=== PATIENT | male | born 1940 | race Caucasian/White ===

== ENCOUNTER 2021-03-27 17:34 | Inpatient (IN) ==
[2021-03-27 18:11] LABS: Basophils # 0.1 10*3/uL (0.0-0.2); Basophils % 0.8 % (0.0-0.8); Eosinophils # 0.2 10*3/uL (0.0-0.87); Hematocrit 34.8 VOL% (42.0-52.0); Hemoglobin 11.1 GM/DL (14.0-18.0); Immature Granulocytes % 0.4 %; Immature Granulocytes Absolute 0.03 #; Lymphocytes # 1.7 10*3/uL (1.4-4.0); Lymphocytes % 23.6 % (21.2-54.2); Mean Corpuscular HGB Conc 31.9 GM/DL (32-36); Mean Corpuscular Volume 101.2 FL (87-102); Mean Platelet Volume 11.2 FL (9.6-12.0); Monocytes % 14.3 % (1.7-12.7); Neutrophils % 57.9 % (38.7-73.9); Platelet Count 168 T/CUMM (130-400); Red Blood Count 3.44 MC/CUMM (3.8-5.5); Red Cell Distribution Width 13.3 % (9.3-17.3); White Blood Count 7.1 T/CUMM (4-12)
[2021-03-27 18:21] LABS: INR 1.1; PT Patient Result 12.6 SECS (10.5-12.0); Partial Thromboplastin Time 32.3 SECS (23.8-32.1)
[2021-03-27 18:51] LABS: Albumin 3.1 G/DL (3.4-5.0); Bilirubin,Total 0.4 MG/DL (0.20-1.00); Calcium 9.3 MG/DL (8.5-10.1); Osmolality,Calculated 276.8 MOS/KG (273-304); Potassium 4.4 MMOL/L (3.5-5.1); Total Protein 6.9 G/DL (6.4-8.2)
[2021-03-27] MEDS ORDERED: METHOCARBAMOL 500 MG TABLET PO PRN (19:58)
[2021-03-27] MEDS ORDERED: LIDOCAINE 5% PATCH TRANSDERM PRN (19:58)
[2021-03-27] MEDS ORDERED: MAGNESIUM SULF RIDER 4 GM/100 ML PREMIX IV PRN (19:59)
[2021-03-27] MEDS ORDERED: BISACODYL 5 MG TABLET PO PRN (19:59)
[2021-03-27] MEDS ORDERED: ALUMINUM/MAGNES/SIMETH MAX STR 30 ML UDCUP PO PRN (19:59)
[2021-03-27] MEDS ORDERED: ACETAMINOPHEN 325 MG TABLET PO PRN (19:59)
[2021-03-27] MEDS ORDERED: DOCUSATE SODIUM 100 MG CAPSULE PO PRN (19:59)
[2021-03-27] MEDS ORDERED: SIMETHICONE CHEW 125 MG TABLET PO PRN (19:59)
[2021-03-27] MEDS ORDERED: MAGNESIUM SULF RIDER 2 GM/50 ML PREMIX IV PRN (19:59)
[2021-03-27] MEDS: ENOXAPARIN 100 MG/ML SYRINGE SUBCUT SCH (20:47)
[2021-03-27] MEDS: SIMVASTATIN 20 MG TABLET PO SCH (20:47)
[2021-03-27] MEDS: METOPROLOL SUCCINATE XL 25 MG TABLET PO SCH (20:47)
[2021-03-28] MEDS ORDERED: AMIODARONE INJ 150 MG in DEXTROSE 5% 100 ML IV ONE (01:24)
[2021-03-28] MEDS ORDERED: AMIODARONE 450 MG/9 ML VIAL IV ONE (01:25)
[2021-03-28] MEDS ORDERED: AMIODARONE 150 MG/3 ML VIAL ONE (01:25)
[2021-03-28] MEDS ORDERED: AMIODARONE INJ 450 MG in DEXTROSE 5% 241 ML IV SCH (01:40)
[2021-03-28 02:04] LABS: Basophils # 0.1 10*3/uL (0.0-0.2); Basophils % 0.6 % (0.0-0.8); Eosinophils # 0.2 10*3/uL (0.0-0.87); Eosinophils % 1.7 % (0.00-10.9); Hematocrit 33.8 VOL% (42.0-52.0); Hemoglobin 10.7 GM/DL (14.0-18.0); Immature Granulocytes % 0.4 %; Immature Granulocytes Absolute 0.04 #; Lymphocytes # 1.4 10*3/uL (1.4-4.0); Lymphocytes % 14.9 % (21.2-54.2); Mean Corpuscular HGB Conc 31.7 GM/DL (32-36); Mean Corpuscular Volume 100.3 FL (87-102); Mean Platelet Volume 10.8 FL (9.6-12.0); Monocytes % 10.4 % (1.7-12.7); Platelet Count 151 T/CUMM (130-400); Red Blood Count 3.37 MC/CUMM (3.8-5.5); Red Cell Distribution Width 13.2 % (9.3-17.3); White Blood Count 9.6 T/CUMM (4-12)
[2021-03-28 02:35] LABS: Calcium 8.8 MG/DL (8.5-10.1); Osmolality,Calculated 279.5 MOS/KG (273-304); Potassium 4.4 MMOL/L (3.5-5.1)
[2021-03-28] MEDS: AMIODARONE INJ 450 MG in DEXTROSE 5% 241 ML IV SCH ×2 (08:07→23:26)
[2021-03-28] MEDS: ENOXAPARIN 100 MG/ML SYRINGE SUBCUT SCH (08:08)
[2021-03-28] MEDS: MULTIVITAMIN (CENTRUM) TABLET PO SCH (08:08)
[2021-03-28] MEDS: PANTOPRAZOLE 40 MG TABLET PO SCH (08:08)
[2021-03-28] MEDS ORDERED: VALSARTAN 40 MG PO SCH (09:00)
[2021-03-28] MEDS: DICLOFENAC 1% GEL 100 GM TUBE TOP SCH ×2 (10:00→21:35)
[2021-03-28] MEDS: METOPROLOL SUCCINATE XL 25 MG TABLET PO SCH ×2 (10:00→21:07)
[2021-03-28] MEDS ORDERED: FUROSEMIDE 20 MG/2 ML VIAL IV ONE (14:00)
[2021-03-28] MEDS: SIMVASTATIN 20 MG TABLET PO SCH (21:07)
[2021-03-29 04:52] LABS: Basophils % 0.2 % (0.0-0.8); Eosinophils % 0.1 % (0.00-10.9); Hematocrit 32.5 VOL% (42.0-52.0); Hemoglobin 10.4 GM/DL (14.0-18.0); Immature Granulocytes % 0.7 %; Immature Granulocytes Absolute 0.09 #; Lymphocytes # 0.5 10*3/uL (1.4-4.0); Lymphocytes % 3.9 % (21.2-54.2); Mean Corpuscular Volume 100.9 FL (87-102); Mean Platelet Volume 11.7 FL (9.6-12.0); Monocytes % 10.5 % (1.7-12.7); Neutrophils % 84.6 % (38.7-73.9); Platelet Count 145 T/CUMM (130-400); Red Blood Count 3.22 MC/CUMM (3.8-5.5); Red Cell Distribution Width 13.2 % (9.3-17.3); White Blood Count 13.6 T/CUMM (4-12)
[2021-03-29 05:03] LABS: INR 1.2; PT Patient Result 13.6 SECS (10.5-12.0); Partial Thromboplastin Time 30.7 SECS (23.8-32.1)
[2021-03-29 05:15] LABS: Calcium 8.5 MG/DL (8.5-10.1); Osmolality,Calculated 274.1 MOS/KG (273-304); Potassium 4.4 MMOL/L (3.5-5.1)
[2021-03-29 05:18] LABS: Hypochromia Slight; Lymphocytes 3 % (20-55); Segmented Neutrophils 86 % (50-85); Total Cells Counted 100
[2021-03-29 05:19] LABS: Microcytosis 1+; Ovalocytes Slight; Platelet Estimate Adequate
[2021-03-29] MEDS ORDERED: ceFAZolin 1,000 MG VIAL IRRIG ONE (06:00)
[2021-03-29] MEDS: PANTOPRAZOLE 40 MG TABLET PO SCH (09:29)
[2021-03-29] MEDS: MULTIVITAMIN (CENTRUM) TABLET PO SCH (09:29)
[2021-03-29] MEDS: METOPROLOL SUCCINATE XL 25 MG TABLET PO SCH ×2 (09:29→21:23)
[2021-03-29] MEDS ORDERED: CARBOXYMETHYLCELLULOSE 1% OPH SOLN BOTH EYES PRN (12:50)
[2021-03-29] MEDS: DICLOFENAC 1% GEL 100 GM TUBE TOP SCH ×2 (14:20→21:25)
[2021-03-29] MEDS ORDERED: TISSUE ADHESIVE 1 EACH APPLICATOR TOP ONE (15:02)
[2021-03-29] MEDS ORDERED: LIDOCAINE 1% 20 ML VIAL ONE (15:02)
[2021-03-29] MEDS ORDERED: HEPARIN/NACL 0.9% 2 UNITS/ML 1,000 UNIT/500 ML BAG IV ONE (15:02)
[2021-03-29] MEDS ORDERED: ceFAZolin 1,000 MG VIAL ONE (15:02)
[2021-03-29] MEDS ORDERED: fentaNYL 100 MCG/2 ML VIAL ONE (15:36)
[2021-03-29] MEDS ORDERED: MIDAZOLAM 2 MG/2 ML VIAL ONE (15:36)
[2021-03-29] MEDS ORDERED: ONDANSETRON 4 MG/2 ML VIAL IV PRN (16:38)
[2021-03-29] MEDS: AMIODARONE INJ 450 MG in DEXTROSE 5% 241 ML IV SCH (17:35)
[2021-03-29] MEDS: AMIODARONE 200 MG TABLET PO SCH (21:23)
[2021-03-29] MEDS: SIMVASTATIN 20 MG TABLET PO SCH (21:23)
[2021-03-30 01:06] LABS: Bilirubin,Urine Negative (Negative); Blood, Urine Small mg/dL (Negative); Glucose,Urine (UA) Negative (Negative); Hyaline Casts,Urine 1 /LPF (0-3); Ketones,Urine 5 mg/dL (Negative); Mucus,Urine Occasional /LPF (Occasional); Nitrite,Urine Negative (Negative); Protein,Urine >=500 MG/DL; RBC,Urine 1 /HPF (0-4); Urine Appearance CLEAR (Clear); Urine Color Amber (Yellow); Urine Specific Gravity 1.023 (1.001-1.035); Urine Urobilinogen < 2.0 EU/DL (<2.0)
[2021-03-30 04:39] LABS: Basophils % 0.4 % (0.0-0.8); Eosinophils # 0.1 10*3/uL (0.0-0.87); Eosinophils % 0.6 % (0.00-10.9); Hemoglobin 10.6 GM/DL (14.0-18.0); Immature Granulocytes % 0.6 %; Immature Granulocytes Absolute 0.06 #; Lymphocytes % 9.1 % (21.2-54.2); Mean Corpuscular HGB Conc 32.1 GM/DL (32-36); Mean Corpuscular Volume 99.4 FL (87-102); Mean Platelet Volume 12.4 FL (9.6-12.0); Monocytes % 13.4 % (1.7-12.7); Neutrophils % 75.9 % (38.7-73.9); Platelet Count 122 T/CUMM (130-400); Red Blood Count 3.32 MC/CUMM (3.8-5.5); Red Cell Distribution Width 13.2 % (9.3-17.3); White Blood Count 10.5 T/CUMM (4-12)
[2021-03-30 04:56] LABS: Osmolality,Calculated 272.4 MOS/KG (273-304); Potassium 5.8 MMOL/L (3.5-5.1)
[2021-03-30 05:12] LABS: Hypochromia Slight; Lymphocytes 6 % (20-55); Microcytosis Slight; Segmented Neutrophils 84 % (50-85); Total Cells Counted 100
[2021-03-30] MEDS: MULTIVITAMIN (CENTRUM) TABLET PO SCH (08:19)
[2021-03-30] MEDS: METOPROLOL SUCCINATE XL 25 MG TABLET PO SCH ×2 (08:19→20:26)
[2021-03-30] MEDS: AMIODARONE 200 MG TABLET PO SCH ×2 (08:20→20:26)
[2021-03-30] MEDS: PANTOPRAZOLE 40 MG TABLET PO SCH (08:20)
[2021-03-30] MEDS: DICLOFENAC 1% GEL 100 GM TUBE TOP SCH ×2 (08:20→20:29)
[2021-03-30] MEDS: SIMVASTATIN 20 MG TABLET PO SCH (20:26)
[2021-03-30] MEDS: APIXABAN 2.5 MG TABLET PO SCH (20:27)
[2021-03-31 05:06] LABS: Basophils % 0.3 % (0.0-0.8); Eosinophils # 0.1 10*3/uL (0.0-0.87); Eosinophils % 1.2 % (0.00-10.9); Hematocrit 31.4 VOL% (42.0-52.0); Hemoglobin 10.1 GM/DL (14.0-18.0); Immature Granulocytes % 0.4 %; Immature Granulocytes Absolute 0.05 #; Lymphocytes % 8.8 % (21.2-54.2); Mean Corpuscular HGB Conc 32.2 GM/DL (32-36); Mean Platelet Volume 12.2 FL (9.6-12.0); Monocytes % 13.1 % (1.7-12.7); Neutrophils % 76.2 % (38.7-73.9); Platelet Count 124 T/CUMM (130-400); Red Blood Count 3.14 MC/CUMM (3.8-5.5); Red Cell Distribution Width 13.2 % (9.3-17.3); White Blood Count 11.3 T/CUMM (4-12)
[2021-03-31 05:30] LABS: Calcium 8.5 MG/DL (8.5-10.1); Osmolality,Calculated 283.5 MOS/KG (273-304); Potassium 3.9 MMOL/L (3.5-5.1)
[2021-03-31] MEDS: METOPROLOL SUCCINATE XL 25 MG TABLET PO SCH (09:48)
[2021-03-31] MEDS: AMIODARONE 200 MG TABLET PO SCH (09:48)
[2021-03-31] MEDS: APIXABAN 2.5 MG TABLET PO SCH (09:49)
[2021-03-31] MEDS: DICLOFENAC 1% GEL 100 GM TUBE TOP SCH (09:49)
[2021-03-31] MEDS: PANTOPRAZOLE 40 MG TABLET PO SCH (09:49)
[2021-03-31] MEDS: MULTIVITAMIN (CENTRUM) TABLET PO SCH (09:49)
[2021-03-31] MEDS ORDERED: BISACODYL 5 MG TABLET PO ONE (11:05)
[2021-03-31] MEDS ORDERED: POLYETHYLENE GLYCOL POWDER 17 GM PACK PO SCH (11:05)
[2021-03-31] MEDS ORDERED: TUBERCULIN SKIN TEST 0.1 ML SYRINGE INTRADERM ONE (12:00)
[2021-03-31 12:18] VITALS: BP 120/54
== END 2021-03-31 17:00 | disposition swing bed (61) | DRG 227 ==
LOC: EDBD → EDUNIT# → N.ED 17:34 → N.EDINP 19:58 → N.ICU 22:53 → N.TELES 03-30 16:23
PROVIDERS: ADMIT Internal Medicine Cardiovascular Disease; ATTEND Internal Medicine Cardiovascular Disease
PROC: CLDCICD (2021-03-29 15:15)